=== PATIENT | female | born 1945 | race Caucasian/White ===

== ENCOUNTER → 2018-10-24 15:26 | Outpatient (CLI) | payer MEDICARE, SELFPAY ==
--- NOTE | 2018-10-24 | DI.MG.S_ITS ---
BILATERAL DIGITAL SCREENING MAMMOGRAM 3D/2D WITH CAD: 10/24/2018 CLINICAL: Routine screening. Comparison is made to exams dated: 02/03/2017 mammogram, 10/08/2015 mammogram, and 06/26/2013 mammogram - [facility]. The tissue of both breasts is predominantly fatty. Current study was also evaluated with a Computer Aided Detection (CAD) system. No significant masses, calcifications, or other findings are seen in either breast. There has been no significant interval change. IMPRESSION: NEGATIVE There is no mammographic evidence of malignancy. A 1 year screening mammogram is recommended. This exam was interpreted at Station ID: [id number]. NOTE: For mammograms, a report in lay terms will be sent to the patient. Approximately 15% of breast malignancies will not be visualized mammographically. In the management of a palpable breast mass, a negative mammogram must not discourage biopsy of a clinically suspicious lesion. Electronically Signed By: Myah silva/bertin:10/24/2018 16:57:52 letter sent: Normal Exam ACR BI-RADS Category 1: Negative 3341F
== END ==
DX: Z12.31 Encounter for screening mammogram for malignant neoplasm of breast (principal)
CPT/HCPCS: 77063; 77067

== ENCOUNTER → 2020-12-23 07:37 | Outpatient (CLI) | payer MEDICARE, OTHER, SELFPAY ==
--- NOTE | 2020-12-23 07:38 | DI.US.S_ITS ---
PROCEDURE: US PELVIC COMPLETE INDICATIONS: FAMILY HISTORY OVARIAN CANCER TECHNIQUE: Real-time scanning was performed of the pelvic organs, with image documentation. Additional endovaginal scanning was necessary due to incomplete visualization of the adnexal and endometrial structures by transabdominal scanning. COMPARISON: None. FINDINGS: Uterus: Uterus is anteverted and normal in size at 6.9 x 2.8 x 4.4 cm. The endometrium measures 2.6 mm in combined thickness. Ovaries: Not seen. No suspicious adnexal masses. Other: No pathologic free abdominal or pelvic fluid. IMPRESSION: 1. Normal, age-appropriate uterus. 2. Nonvisualization of either ovary, but no suspicious adnexal masses seen. Dictated by: Myah Dykes M.D. on 12/23/2020 at 10:26 Approved by: Myah Dykes M.D. on 12/23/2020 at 10:28
--- NOTE | 2020-12-23 07:38 | DI.MG.S_ITS ---
BILATERAL DIGITAL SCREENING MAMMOGRAM 3D/2D WITH CAD: 12/23/2020 CLINICAL: Routine screening. Comparison is made to exams dated: 10/24/2018 mammogram, 02/03/2017 mammogram, and 10/08/2015 mammogram - [facility]. There are scattered fibroglandular elements in both breasts. Current study was also evaluated with a Computer Aided Detection (CAD) system. No significant masses, calcifications, or other findings are seen in either breast. There has been no significant interval change. IMPRESSION: NEGATIVE There is no mammographic evidence of malignancy. A 1 year screening mammogram is recommended. This exam was interpreted at Station ID: [id number]. NOTE: For mammograms, a report in lay terms will be sent to the patient. Approximately 15% of breast malignancies will not be visualized mammographically. In the management of a palpable breast mass, a negative mammogram must not discourage biopsy of a clinically suspicious lesion. Electronically Signed By: Moises billy/bertin:12/23/2020 08:38:31 letter sent: Normal Exam ACR BI-RADS Category 1: Negative 3341F
== END ==
PROVIDERS: PCP Obstetrics & Gynecology; Referring Provider Obstetrics & Gynecology; Visit Provider Obstetrics & Gynecology
DX: Z12.31 Encounter for screening mammogram for malignant neoplasm of breast (principal); Z12.73 Encounter for screening for malignant neoplasm of ovary; R14.0 Abdominal distension (gaseous); Z80.41 Family history of malignant neoplasm of ovary
CPT/HCPCS: 76830; 76856; 77063; 77067

== ENCOUNTER → 2021-05-18 12:17 | Outpatient (CLI) | payer MEDICARE, OTHER, SELFPAY ==
[2021-05-18 14:56] LABS: High Sensitivity CRP - Cardiac 26.1 mg/L (1.0-3.0)
[2021-05-19 04:27] LABS: Immunoglobulin A 164 mg/dL (64-422)
[2021-05-19 16:48] LABS: t-Transglutaminase IgA <2 U/mL (0-3)
[2021-05-20 15:46] LABS: Calprotectin, Stool 446 ug/g (0-120)
== END ==
PROVIDERS: PCP Student in an Organized Health Care Education/Training Program; Referring Provider Internal Medicine Gastroenterology; Visit Provider Student in an Organized Health Care Education/Training Program
DX: M81.0 Age-related osteoporosis without current pathological fracture; Z78.0 Asymptomatic menopausal state; Z82.62 Family history of osteoporosis
CPT/HCPCS: 36415; 77080; 82784; 83516; 83993; 86140

== ENCOUNTER → 2022-06-28 07:47 | Outpatient (CLI) | payer MEDICARE, OTHER, SELFPAY ==
[2022-06-28 08:31] LABS: BUN Creatinine Ratio 42.9 (6-22); Blood Urea Nitrogen 27 mg/dL (7-17); Calcium 9.2 mg/dL (8.4-10.2); Carbon Dioxide 31 mmol/L (22-32); Chloride 102 mmol/L (98-107); Cholesterol 250 mg/dL (140-199); Estimated Glomerular Filt Rate > 60 mL/min (>60); Glucose 94 mg/dL (80-110); HDL Cholesterol 77 mg/dL (40-60); HEMOLYSIS < 15 (0-50); LDL Cholesterol Calculated 159 mg/dL (<100); Potassium 4.4 mmol/L (3.4-5.1); Sodium 138 mmol/L (137-145); Triglycerides 72 mg/dL (35-150)
[2022-06-28 09:21] LABS: Hep C Virus Ab w/Reflex Quant NEGATIVE s/c (NEGATIVE)
[2022-06-28 09:33] LABS: Vitamin D 25 Hydroxy (D3) 53.9 ng/mL (30.0-100.0)
== END ==
PROVIDERS: PCP Student in an Organized Health Care Education/Training Program; Referring Provider Student in an Organized Health Care Education/Training Program; Visit Provider Student in an Organized Health Care Education/Training Program
DX: Z79.1 Long term (current) use of non-steroidal anti-inflammatories (NSAID) (principal); M81.0 Age-related osteoporosis without current pathological fracture; Z11.59 Encounter for screening for other viral diseases; Z13.220 Encounter for screening for lipoid disorders
CPT/HCPCS: 36415; 80048; 80061; 82306; 86803

== ENCOUNTER → 2023-10-03 09:38 | Outpatient (CLI) | payer MEDICARE, OTHER, SELFPAY ==
--- NOTE | 2023-10-03 10:33 | DI.MG.S_ITS ---
BILATERAL DIGITAL SCREENING MAMMOGRAM 3D/2D WITH CAD: 10/03/2023 CLINICAL: Routine screening. Comparison is made to exams dated: 12/23/2020 mammogram, 10/24/2018 mammogram, and 02/03/2017 mammogram - [facility]. There are scattered areas of fibroglandular density in both breasts (category b / 25%-50% glandular tissue). Current study was also evaluated with a Computer Aided Detection (CAD) system. No significant masses, calcifications, or other findings are seen in either breast. There has been no significant interval change. IMPRESSION: NEGATIVE There is no mammographic evidence of malignancy. A 1 year screening mammogram is recommended. Based on the Tyrer Cuzick model (a risk assessment model) the patient's lifetime risk is 2.7% and her 10 year risk is 0.0%. According to the ACR, ACS, and NCCN guidelines, an annual breast MRI exam along with mammogram is recommended if the patient's lifetime risk is 20% or greater. This exam was interpreted at Station ID: [id number]. NOTE: For mammograms, a report in lay terms will be sent to the patient. Approximately 15% of breast malignancies will not be visualized mammographically. In the management of a palpable breast mass, a negative mammogram must not discourage biopsy of a clinically suspicious lesion. Electronically Signed By: Tex valle/bertin:10/03/2023 12:06:33 letter sent: Normal Exam ACR BI-RADS Category 1: Negative 3341F
[2023-10-03 11:01] LABS: Alanine Aminotransferase 17 IU/L (<35); Albumin 4.6 g/dL (3.5-5.0); Albumin Globulin Ratio 1.7 (1.0-2.8); Alkaline Phosphatase 78 U/L (38-126); Aspartate Aminotransferase 24 IU/L (14-36); BUN Creatinine Ratio 33.9 (6-22); Bilirubin Total 0.6 mg/dL (0.2-1.3); Blood Urea Nitrogen 20 mg/dL (7-17); Calcium 9.3 mg/dL (8.4-10.2); Carbon Dioxide 31 mmol/L (22-32); Chloride 105 mmol/L (98-107); Estimated Glomerular Filt Rate > 60 mL/min (>60); Globulin 2.7 g/dL (1.7-4.1); Glucose 88 mg/dL (80-110); HEMOLYSIS < 15 (0-50); Potassium 4.2 mmol/L (3.4-5.1); Sodium 140 mmol/L (137-145); Total Protein 7.3 g/dL (6.3-8.2)
== END ==
PROVIDERS: PCP Family Medicine; Referring Provider Family Medicine; Visit Provider Family Medicine
DX: Z12.31 Encounter for screening mammogram for malignant neoplasm of breast (principal); R92.323 Mammographic fibroglandular density, bilateral breasts; M81.0 Age-related osteoporosis without current pathological fracture; N81.10 Cystocele, unspecified; N90.4 Leukoplakia of vulva; E78.2 Mixed hyperlipidemia; G47.33 Obstructive sleep apnea (adult) (pediatric); F51.01 Primary insomnia; Z68.22 Body mass index [BMI] 22.0-22.9, adult
CPT/HCPCS: 36415; 77063; 77067; 80053; 99214

== ENCOUNTER → 2024-04-04 08:50 | Outpatient (CLI) | payer MEDICARE, OTHER, SELFPAY ==
--- NOTE | 2024-04-04 08:51 | DI.RAD.S_ITS ---
PROCEDURE: XR LUMBAR SPINE 2-3V INDICATIONS: GLF on lumbar, central tenderness TECHNIQUE: 3 views of the lumbar spine were acquired. COMPARISON: None. FINDINGS: Lumbar spine curvature and alignment: Mild levoscoliosis of the lower thoracic upper lumbar spine noted Bones: Mild L3 compression fracture noted. Disc spaces: The L2-3 and L3-4 disc levels are normal. The remaining disc levels show severe degeneration. Severe degenerative ate facet disease present L3-4 L4-5 and L5-S1. Soft tissues: No soft tissue swelling, calcification or mass. IMPRESSION: Degeneration. Mild L3 compression fracture Dictated by: Jarod Sadler M.D. on 04/04/2024 at 12:07 Approved by: Jarod Sadler M.D. on 04/04/2024 at 12:10
== END ==
PROVIDERS: PCP Family Medicine; Referring Provider Family Medicine; Visit Provider Family Medicine
DX: S32.039A Unspecified fracture of third lumbar vertebra, initial encounter for closed fracture (principal); M47.816 Spondylosis without myelopathy or radiculopathy, lumbar region; M47.817 Spondylosis without myelopathy or radiculopathy, lumbosacral region; M51.360 Other intervertebral disc degeneration, lumbar region with discogenic back pain only; M51.370 Other intervertebral disc degeneration, lumbosacral region with discogenic back pain only; M25.551 Pain in right hip; W18.30XA Fall on same level, unspecified, initial encounter
CPT/HCPCS: 72100

== ENCOUNTER → 2024-05-15 09:33 | Outpatient (CLI) | payer MEDICARE, OTHER, SELFPAY ==
--- NOTE | 2024-05-15 09:35 | DI.RAD.S_ITS ---
PROCEDURE: XR LUMBAR SPINE MIN 4V INDICATIONS: BACK PAIN L3 FX TECHNIQUE: 5 views of the lumbar spine acquired, including oblique views. COMPARISON: [facility], CR, XR LUMBAR SPINE 2-3V, 04/04/2024, 8:57. FINDINGS: Bones: 5 nonrib-bearing vertebrae are present. There is normal bony alignment. Stable L3 vertebral body compression fracture, unchanged. No suspicious bony lesions. Multilevel degenerative disc and foraminal narrowing are present. Soft tissues: Overlying bowel gas pattern is normal. No suspicious soft tissue calcifications. IMPRESSION: Stable L3 compression deformity. Dictated by: Indiana Cadlera M.D. on 05/15/2024 at 10:47 Approved by: Indiana Caldera M.D. on 05/15/2024 at 10:49
== END ==
PROVIDERS: PCP Family Medicine; Referring Provider Physical Medicine & Rehabilitation; Visit Provider Physical Medicine & Rehabilitation
DX: S32.030A Wedge compression fracture of third lumbar vertebra, initial encounter for closed fracture (principal); M81.0 Age-related osteoporosis without current pathological fracture; G54.5 Neuralgic amyotrophy
CPT/HCPCS: 72110; 99214

== ENCOUNTER → 2024-07-31 07:48 | Outpatient (CLI) | payer MEDICARE, OTHER, SELFPAY ==
--- NOTE | 2024-07-31 07:49 | DI.RAD.S_ITS ---
PROCEDURE: XR LUMBAR SPINE 2-3V INDICATIONS: L3 compression fracture TECHNIQUE: 3 views of the lumbar spine were acquired. COMPARISON: [facility], CR, XR LUMBAR SPINE MIN 4V, 05/15/2024, 9:48. [facility], CR, XR LUMBAR SPINE 2-3V, 04/04/2024, 8:57. FINDINGS AND IMPRESSION: L3 compression fracture is similar to prior, with about 50 percent height loss. Moderate to severe spondylotic changes, similar to prior, with disc space height loss, facet arthropathy, and osteophytes. Rightward lumbar spinal curvature, also similar to prior. Large fecal loading. If there is high concern for further derangement, consider MRI evaluation. Dictated by: Chas Jarquin M.D. on 07/31/2024 at 14:33 Approved by: Chas Jarquin M.D. on 07/31/2024 at 14:37
== END ==
PROVIDERS: PCP Family Medicine; Referring Provider Physical Medicine & Rehabilitation; Visit Provider Physical Medicine & Rehabilitation
DX: S32.030A Wedge compression fracture of third lumbar vertebra, initial encounter for closed fracture (principal); M47.816 Spondylosis without myelopathy or radiculopathy, lumbar region; M20.41 Other hammer toe(s) (acquired), right foot; M81.0 Age-related osteoporosis without current pathological fracture
CPT/HCPCS: 72100; 99213